=== PATIENT | male | born 1985 | race Caucasian/White ===

== ENCOUNTER → 2023-11-08 14:31 | Outpatient (CLI) | payer OTHER, SELFPAY | PROVIDERS: PCP Family Medicine; Visit Provider Physician Assistant Medical | DX: Z12.83 Encounter for screening for malignant neoplasm of skin (principal); K61.0 Anal abscess; R53.83 Other fatigue; U09.9 Post COVID-19 condition, unspecified; Z56.6 Other physical and mental strain related to work | CPT/HCPCS: 87070; 87075; 87147; 87205 ==

== ENCOUNTER → 2023-11-13 10:21 | Outpatient (CLI) | payer OTHER, SELFPAY ==
[2023-11-13 20:12] LABS: Add Manual Diff / Slide Review NO; Basophils Absolute Auto 0 /uL (0-100); Basophils Percent Auto 0.4 % (0-2); Eosinophils Absolute Auto 1500 /uL (0-450); Eosinophils Percent Auto 14.1 % (2-4); Hemoglobin 14.5 g/dL (13.5-17.5); Lymphocytes Absolute Auto 2500 /uL (1100-4500); Lymphocytes Percent Auto 22.6 % (25-40); Mean Corpuscular HGB Conc 33.8 % (30-36); Mean Corpuscular Hemoglobin 28.9 PG (26-34); Mean Corpuscular Volume 85.7 fL (80-100); Monocytes Absolute Auto 1000 /uL (0-900); Monocytes Percent Auto 9.3 % (3-14); Neutrophils Absolute Auto 5800 /uL (1500-7000); Neutrophils Percent Auto 53.6 % (50-75); Platelet Count 278 X10^3/uL (150-400); Red Blood Cell Count 5.02 X10^6/uL (4.5-5.9); Red Cell Distribution Width 13.4 % (11.6-14.8); White Blood Cell Count 10.9 X10^3/uL (4.5-11.0)
[2023-11-13 20:45] LABS: Alanine Aminotransferase 23 IU/L (<50); Albumin 4.6 g/dL (3.5-5.0); Albumin Globulin Ratio 1.6 (1.0-2.8); Alkaline Phosphatase 59 U/L (38-126); Aspartate Aminotransferase 24 IU/L (17-59); BUN Creatinine Ratio 14.3 (6-22); Bilirubin Total 0.6 mg/dL (0.2-1.3); Blood Urea Nitrogen 13 mg/dL (9-20); C-Reactive Protein Quant < 0.5 mg/dL (<1.0); Calcium 9.3 mg/dL (8.4-10.2); Carbon Dioxide 32 mmol/L (22-32); Chloride 101 mmol/L (98-107); Cholesterol 160 mg/dL (140-199); Estimated Glomerular Filt Rate > 60 mL/min (>60); Globulin 2.8 g/dL (1.7-4.1); Glucose 91 mg/dL (70-100); HDL Cholesterol 51 mg/dL (40-60); HEMOLYSIS < 15 (0-50); LDL Cholesterol Calculated 97 mg/dL (<100); Potassium 4.4 mmol/L (3.4-5.1); Sodium 138 mmol/L (137-145); Total Protein 7.4 g/dL (6.3-8.2); Triglycerides 58 mg/dL (35-150)
[2023-11-13 20:46] LABS: Erythrocyte Sedimentation Rate 2 MM/HR (0-15)
[2023-11-13 20:56] LABS: TSH w/ Reflex to FT4 1.55 uIU/mL (0.47-4.68)
== END ==
PROVIDERS: PCP Family Medicine; Visit Provider Physician Assistant Medical
DX: R63.4 Abnormal weight loss (principal); U09.9 Post COVID-19 condition, unspecified; R53.83 Other fatigue; Z56.6 Other physical and mental strain related to work
CPT/HCPCS: 80053; 80061; 84443; 85025; 85651; 86140

== ENCOUNTER → 2023-11-17 09:55 | Outpatient (CLI) | payer OTHER, SELFPAY | PROVIDERS: PCP Family Medicine; Visit Provider Physician Assistant Medical | DX: K61.0 Anal abscess (principal); R53.83 Other fatigue; U09.9 Post COVID-19 condition, unspecified; R63.4 Abnormal weight loss; R89.8 Other abnormal findings in specimens from other organs, systems and tissues; Z56.6 Other physical and mental strain related to work | CPT/HCPCS: 82274; 87177 ==